=== PATIENT | male | born 1940 | race Caucasian/White ===

== ENCOUNTER 2021-08-31 09:46 | Day surgery (SDC) | payer MEDICARE, BC ==
[~2021-08-31] VITALS: Ht 157.5 cm; Wt 79.5 kg
[~2021-08-31 09:46] MED LIST: SODIUM CHLORIDE 0.9% 1,000 ML IV ONE
[2021-08-31] MEDS ORDERED: DiphenhydrAMINE HCL 50 MG CAPSULE PO ONE (10:00)
[2021-08-31] MEDS ORDERED: DIAZEPAM 5 MG TABLET PO ONE (10:00)
[2021-08-31] MEDS ORDERED: ASPIRIN 81 MG CHEWABLE TABLET PO ONE (10:00)
[2021-08-31] MEDS ORDERED: EZET10TA57 PO (10:10)
[2021-08-31] MEDS ORDERED: ASPI-1450 PO (10:10)
[2021-08-31] MEDS ORDERED: ALLO100T2 PO (10:10)
[2021-08-31] MEDS ORDERED: BRIN8DRO OU (10:10)
[2021-08-31] MEDS ORDERED: SUCR1TAB28 PO (10:10)
[2021-08-31] MEDS ORDERED: CIPR-278 PO (10:10)
[2021-08-31] MEDS ORDERED: OMEG-108 PO (10:10)
[2021-08-31] MEDS ORDERED: CLOP75TA60 PO (10:10)
[2021-08-31] MEDS ORDERED: VITA-328 PO (10:10)
[2021-08-31] MEDS ORDERED: NETA2.5D OU (10:10)
[2021-08-31] MEDS ORDERED: [UNRECOGNIZED DRUG - CODE] PO (10:10)
[2021-08-31] MEDS ORDERED: XALA2.5OS OU (10:10)
[2021-08-31] MEDS ORDERED: ATOR20TA86 PO (10:10)
[2021-08-31] MEDS ORDERED: METO25 PO (10:10)
[2021-08-31] MEDS ORDERED: FOLI-130 PO (10:10)
[2021-08-31] MEDS ORDERED: LOSA-382 PO (10:10)
[2021-08-31] MEDS ORDERED: TAMS-13 PO (10:10)
[2021-08-31] MEDS ORDERED: ASCO500 PO (10:10)
[2021-08-31 12:04] LABS: COVID AG,FIA SOURCE NASAL SWAB
[2021-08-31] MEDS ORDERED: DiphenhydrAMINE HCL 50 MG CAPSULE ONE (13:17)
[2021-08-31] MEDS ORDERED: ASPIRIN 81 MG CHEWABLE TABLET ONE (13:17)
[2021-08-31] MEDS ORDERED: DIAZEPAM 5 MG TABLET ONE (13:22)
[2021-08-31] MEDS ORDERED: LIDOCAINE/PF 1% 30 ML VIAL ONE (14:40)
[2021-08-31] MEDS ORDERED: IOHEXOL 300 MG/ML 100 ML VIAL ONE (14:41)
[2021-08-31] MEDS ORDERED: IOHEXOL 300 MG/ML 150 ML VIAL ONE (14:41)
[2021-08-31] MEDS ORDERED: HEPARIN SODIUM 1000 UNITS/NS 1,000 ML ONE (14:41)
[2021-08-31] MEDS ORDERED: SODIUM BICARBONATE 50 MEQ/50 ML VIAL ONE (14:41)
[2021-08-31 14:50] VITALS: BP 139/57
[2021-08-31] MEDS ORDERED: MIDAZOLAM HCL 2 MG/2 ML VIAL ONE (14:51)
[2021-08-31] MEDS ORDERED: FentaNYL CITRATE PF 100 MCG/2 ML VIAL ONE (14:51)
[2021-08-31] MEDS ORDERED: HEPARIN SODIUM 1000 UNITS/NS 1,000 ML IARTER ONE (15:15)
[2021-08-31] MEDS ORDERED: IOHEXOL 300 MG/ML 150 ML VIAL IARTER ONE (15:15)
[2021-08-31] MEDS ORDERED: LIDOCAINE 1% 30 ML/SOD BICARB 8.4% 4 ML SQ ONE (15:15)
[2021-08-31] MEDS ORDERED: FentaNYL CITRATE PF 100 MCG/2 ML VIAL IVP ONE ×2 (15:15→16:00)
[2021-08-31] MEDS ORDERED: MIDAZOLAM HCL 2 MG/2 ML VIAL IVP ONE ×2 (15:15→16:00)
[2021-08-31] MEDS ORDERED: HEPARIN SODIUM,PORCINE 5,000 UNITS/ML VIAL IVP ONE (15:45)
[2021-08-31] MEDS ORDERED: TICAGRELOR 90 MG TABLET ONE ×2 (15:46→18:43)
[2021-08-31] MEDS ORDERED: NITROGLYCERIN 400 MCG/SUBLINGUAL SPRAY 4.9 GM BOTTLE SL ONE ×2 (15:50→16:00)
[2021-08-31] MEDS ORDERED: TICAGRELOR 90 MG TABLET PO ONE ×2 (16:00→19:00)
[2021-08-31 16:14] VITALS: BP 100/48
[2021-09-01 11:07] LABS: HEPATITIS C AB (EIA) <0.1 s/co ratio (0.0-0.9)
[2021-09-01 13:06] LABS: HIV 1-2 SCREEN 4TH GEN W/RFLX Non Reactive (Non Reactive)
== END 2021-08-31 19:15 | disposition home or self-care (01) ==
LOC: CATHLAB 09:46
PROVIDERS: ATTEND Internal Medicine Interventional Cardiology
DX: R94.39 Abnormal result of other cardiovascular function study (principal); I25.10 Atherosclerotic heart disease of native coronary artery without angina pectoris; I10 Essential (primary) hypertension; Z98.890 Other specified postprocedural states; Z86.73 Personal history of transient ischemic attack (TIA), and cerebral infarction without residual deficits; Z79.899 Other long term (current) drug therapy; Z79.01 Long term (current) use of anticoagulants; Z79.82 Long term (current) use of aspirin
CPT/HCPCS: 36415; 84460; 86803; 87340; 87389; 87426; 92978; 92979; 93458; 99152; 99153; C1757; C1760; C1874; C1887; C9600; C9803; J1644; J2250; J3010; J3490 ×2; Q9967 ×2; 75960; 92928